=== PATIENT | male | born 1995 | race Caucasian/White ===

== ENCOUNTER 2017-05-14 20:12 | Emergency (ER) | payer SELFPAY ==
[~2017-05-14] VITALS: Ht 172.7 cm; Wt 62.2 kg
[~2017-05-14 20:12] MED LIST: ALBU8.5H3; BECL8.7A; DIVA250T60 PO; RTPRO
[2017-05-14 20:51] VITALS: Ht 172.7 cm; Wt 62.2 kg
== END 2017-05-15 00:44 | disposition left against medical advice (07) ==
LOC: FTE 20:12
DX: Z53.21 Procedure and treatment not carried out due to patient leaving prior to being seen by health care provider (principal)
CPT/HCPCS: 93005

== ENCOUNTER 2017-11-12 19:25 | Emergency (ER) | END 2017-11-12 20:54 | disposition home or self-care (01) ==

== ENCOUNTER 2018-02-06 11:17 | Emergency (ER) | END 2018-02-06 17:03 | disposition home or self-care (01) ==

== ENCOUNTER 2018-04-21 22:21 | Emergency (ER) | END 2018-04-22 02:51 | disposition home or self-care (01) ==

== ENCOUNTER 2018-08-04 01:36 | Emergency (ER) | payer SELFPAY ==
[~2018-08-04] VITALS: Ht 170.2 cm; Wt 65.2 kg
[~2018-08-04 01:36] MED LIST changes: -ALBU8.5H3; +ALBU8.5H8 INH; +BECL10.6 IH; -BECL8.7A; +DIVA-48 PO; -DIVA250T60 PO; +IBUP-1542 PO; +LEVE100018 PO; -RTPRO
[2018-08-04 01:43] VITALS: BP 128/75; PULSE 56; RESP 18; Ht 170.2 cm; Wt 65.2 kg
== END 2018-08-04 03:29 | disposition left against medical advice (07) ==
LOC: FTE 01:36
DX: Z53.21 Procedure and treatment not carried out due to patient leaving prior to being seen by health care provider (principal)

== ENCOUNTER 2019-01-06 14:32 | Emergency (ER) | payer OTHER ==
[~2019-01-06] VITALS: Ht 170.2 cm; Wt 59.6 kg
[2019-01-06 14:37] VITALS: Ht 170.2 cm; Wt 59.6 kg
--- NOTE | 2019-01-06 14:39 | EN ---
Date/Time of Note Date/Time of Note DATE: 01/06/19 TIME: 14:38 ER Progress Note 23-year-old male with persistent right big toe pain for four weeks after soccer injury. Exam shows subungual hematoma with ingrown toenail. ED 2 appropriate for treatment/evaluation for avulsion. FRANCISCA CARREON MD Jan 06, 2019 14:39
[2019-01-06] MEDS ORDERED: IBUPROFEN 600 MG TAB PO ONE (16:30)
--- NOTE | 2019-01-06 17:06 | ERD ---
ER Documentation Chief Complaint Chief Complaint RIGHT 1ST TOE INJURY 1 MONTH AGO HPI 23-year-old male with no significant past medical history presents emergency department complaining of purple/greenish discoloration underneath his right great toenail for the past 1 month. He states he was running during a soccer game and someone accidentally stepped on his foot. He states this is happened multiple times since the original injury. He reports mild pain to the right great toe. He has tried no medication for relief of symptoms. He denies any other symptoms or injuries at this time. ROS All systems reviewed and are negative except as per history of present illness. Medications Home Meds Active Scripts Ibuprofen* (Motrin*) 600 Mg Tab, 600 MG PO Q6, #30 TAB Prov:MIRA PUENTE PA-C 01/06/19 Ibuprofen* (Motrin*) 600 Mg Tab, 600 MG PO Q6H PRN for PAIN AND OR ELEVATED TEMP, #30 TAB Prov:SHAHID REYNOSO RECOVERER 04/22/18 Reported Medications Levetiracetam* (Keppra*) 1,000 Mg Tablet, 1000 MG PO BID, TAB 02/06/18 Divalproex Sodium* (Depakote*) 500 Mg Tablet.dr, 500 MG PO QPM, #90 TAB 02/06/18 Divalproex Sodium* (Depakote*) 500 Mg Tablet.dr, 1000 MG PO QAM, #120 TAB 02/06/18 Beclomethasone Dipropionate (Qvar Redihaler (40 MCG)) 10.6 Gm Hfa.aeroba, 10.6 GM IH DAILY PRN for WHEEZING AND SOB, INH 02/06/18 Albuterol Sulfate* (Proair HFA*) 8.5 Gm Hfa.aer.ad, 2 PUFF INH Q4H PRN for WHEEZING AND SOB, #1 INHALER 02/06/18 Allergies Allergies: Coded Allergies: No Known Drug Allergy (Verified Allergy, Unknown, 08/04/18) PMhx/Soc Medical and Surgical Hx: pt denies Surgical Hx History of Surgery: No Hx Neurological Disorder: Yes (SEIZURE) Hx Respiratory Disorders: Yes (asthma) Hx Cardiac Disorders: No Hx Miscellaneous Medical Probl: No Hx Alcohol Use: No Hx Substance Use: No Hx Tobacco Use: No Smoking Status: Never smoker FmHx Family History: No diabetes Physical Exam Vitals Vital Signs Date Temp Pulse Resp B/P (MAP) Pulse Ox O2 O2 Flow FiO2 Time Delivery Rate 01/06/19 97.7 68 17 145/77 100 14:37 (99) Physical Exam Const: No acute distress Head: Atraumatic Eyes: Normal Conjunctiva ENT: Normal External Ears, Nose and Mouth. Neck: Full range of motion. No meningismus. Resp: No respiratory distress. Skin: No petechiae or rashes Ext: Subungual hematoma noted to the right great toenail. There is mild subungual hematoma noted to the left great toenail. Tenderness palpation over the nailbed of the right great toe. Patient is neurovascularly intact to the right foot and toes of the right lower extremity. Neur: Awake and alert Psych: Normal Mood and Affect Results 24 hrs Current Medications Medications Dose Sig/Lisa Start Time Status Last (Trade) Ordered Route PRN Stop Time Admin Dose Reason Admin Ibuprofen 600 mg ONCE ONCE 01/06/19 DC 01/06/19 (Motrin) PO 16:30 16:30 01/06/19 16:31 [place] [id number] Radiology Main Line: [phone] DIAGNOSTIC IMAGING REPORT Patient: ARON ENAMORADO : 1995 Age: 23 Sex: M [id number] DOS: 01/06/19 0000 Ordering MD: MIRA PUENTE PA-C Location: [facility] Room/Bed: PROCEDURE: XR Right first toe CLINICAL INDICATION: R great toe trauma TECHNIQUE: 3 views were obtained. COMPARISON: No prior studies are available for comparison. FINDINGS: No fracture or dislocation is seen. No definite foreign body. There is a suggestion of soft tissue edema of the toe. No soft tissue gas is seen. IMPRESSION: No definite fracture or dislocation. Soft tissue prominence. RPTAT: [facility]BE Physician [place] Date Time Electronically viewed and signed by Lizeth Yanes Physician on 01/06/2019 16:55 LE/ CC: CINDIMIRA Orellana PA-C [id number] Procedures/MDM 23-year-old male presents to the emergency department complaining of subungual hematoma to the bilateral great toes. Patient did state that his right great toe was stepped on during a soccer game about 1 month ago and this is repeatedly happen since then. X-rays ordered which is interpreted by the radiologist and revealed no evidence of fracture. Full risks, benefits, alternatives were discussed with the patient for nail trephination using cautery. A hole was successfully made on the top of the nail, however no blood was expressed due to this being an old injury. Again, attempt was made for nail trephination on the left toe without success. Patient tolerated the procedures well without complications. Low suspicion for fracture, compartment syndrome, infectious etiology, or other emergent process. 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 No evidence of life-threatening pathology at time of discharge. Pt/family in agreement with discharge plan/diagnosis. Pt/family advised to return immediately with any new or worsening symptoms. Follow-up with primary care physician within the next 1-2 days. Patient's blood pressure was elevated (>120/80) but appears stable without evidence of hypertension emergency or urgency. The patient is to follow-up and pursue outpatient monitoring and therapy with their primary care physician within 1 week and return immediately if they have any new, worsening, or concerning symptoms. Disclaimer: Inadvertent spelling and grammatical errors are likely due to EHR/dictation software use and do not reflect on the overall quality of patient care. Also, please note that the electronic time recorded on this note does not necessarily reflect the actual time of the patient encounter. Departure Diagnosis: Primary Impression: Subungual hematoma Condition: Fair Patient Instructions: Subungual Hematoma Referrals: COMMUNITY CLINICS YOU HAVE RECEIVED A MEDICAL SCREENING EXAM AND THE RESULTS INDICATE THAT YOU DO NOT HAVE A CONDITION THAT REQUIRES URGENT TREATMENT IN THE EMERGENCY DEPARTMENT. FURTHER EVALUATION AND TREATMENT OF YOUR CONDITION CAN WAIT UNTIL YOU ARE SEEN IN YOUR DOCTORS OFFICE WITHIN THE NEXT 1-2 DAYS. IT IS YOUR RESPONSIBILITY TO MAKE AN APPOINTMENT FOR FOLOW-UP CARE. IF YOU HAVE A PRIMARY DOCTOR --you should call your primary doctor and schedule an appointment IF YOU DO NOT HAVE A PRIMARY DOCTOR YOU CAN CALL OUR PHYSICIAN REFERRAL HOTLINE AT IF YOU CAN NOT AFFORD TO SEE A PHYSICIAN YOU CAN CHOSE FROM THE FOLLOWING [facility] [address] [facility] [address] [facility] [address] [facility] [address] [facility]. [facility] [address] [facility] [address] Additional Instructions: Call your primary care doctor TOMORROW for an appointment during the next 1-2 days.See the doctor sooner or return here if your condition worsens before your appointment time. MIRA PUENTE PA-C Jan 06, 2019 17:06
[2019-01-06 17:07] VITALS: BP 126/79; PULSE 45; RESP 18
== END 2019-01-06 17:08 | disposition home or self-care (01) ==
LOC: FTE 14:32
DX: S90.211A Contusion of right great toe with damage to nail, initial encounter (principal); J45.909 Unspecified asthma, uncomplicated; W52.XXXA Crushed, pushed or stepped on by crowd or human stampede, initial encounter; Y92.322 Soccer field as the place of occurrence of the external cause
CPT/HCPCS: 11740; 73660; Z7502; Z7610